=== PATIENT | female | born 1990 | race Caucasian/White ===

== ENCOUNTER → 2021-01-23 | Outpatient (REF) | payer MEDICAID ==
[2021-01-23 15:16] LABS: HEMATOCRIT 37.7 % (36.0-47.0); MEAN CORPUSCULAR HEMOGLOBIN 31.3 pg (27.0-33.0); MEAN CORPUSCULAR HGB CONC 34.5 g/dl (32.0-36.5); MEAN CORPUSCULAR VOLUME 90.8 fl (80.0-96.0); PLATELET COUNT, AUTOMATED 210 10^3/uL (150-450); RED BLOOD COUNT 4.15 10^6/uL (4.00-5.40); WHITE BLOOD COUNT 11.8 10^3/uL (4.0-10.0)
[2021-01-23 16:36] LABS: HEPATITIS C VIRUS ABY INDEX < 0.0 INDEX (<0.8); HIV 1&2 SCREEN CENTAUR NEGATIVE (NEGATIVE)
== END ==
LOC: M PLALAB 13:52
PROVIDERS: ATTEND Advanced Practice Midwife
DX: Z34.02 Encounter for supervision of normal first pregnancy, second trimester (principal); Z3A.00 Weeks of gestation of pregnancy not specified

== ENCOUNTER → 2021-03-31 | Outpatient (CLI) | payer MEDICAID ==
--- NOTE | 2021-03-31 10:43 | REP ---
INDICATION: ANATOMY NAVYA 07/22/21 COMPARISON: None. TECHNIQUE: Transabdominal obstetrical ultrasound with color Doppler evaluation. FINDINGS: Examination demonstrates a single live intrauterine in cephalic presentation. motion is identified by technologist. Placenta is noted anterior and grade 1 without evidence for placenta previa or abruption. Amniotic fluid volume is normal. Cervix measures 3.0 cm in length and appears closed.. Selected gestational age: 23 weeks 6 days with NAVYA 07/22/2021. Gestational age by current measurements 23 weeks 1 day with NAVYA 07/27/2021. FHR equals 134 beats per minute. Estimated weight 577 grams (18thpercentile). Anatomical assessment demonstrates normal structures including cranium, choroid plexus, cavum, cerebellum/posterior fossa, facial features, lungs, four-chamber heart/ventricular outflow tracts, diaphragm, stomach, cord insertion/three-vessel cord, kidneys/bladder, spine, and extremities. IMPRESSION: Single live intrauterine in cephalic presentation demonstrating appropriate estimated weight. Anatomical assessment is complete and normal. <Electronically signed by Misael Arteaga > 03/31/21 1511
== END ==
LOC: M WHC 08:57
PROVIDERS: ATTEND Advanced Practice Midwife
DX: Z34.02 Encounter for supervision of normal first pregnancy, second trimester (principal); Z3A.23 23 weeks gestation of pregnancy

== ENCOUNTER → 2021-04-30 | Outpatient (CLI) | payer MEDICAID, OTHER ==
[2021-04-30 16:08] LABS: HEMATOCRIT 37.2 % (36.0-47.0); HEMOGLOBIN 12.1 g/dl (12.0-15.5); MEAN CORPUSCULAR HEMOGLOBIN 30.7 pg (27.0-33.0); MEAN CORPUSCULAR HGB CONC 32.5 g/dl (32.0-36.5); MEAN CORPUSCULAR VOLUME 94.4 fl (80.0-96.0); PLATELET COUNT, AUTOMATED 169 10^3/uL (150-450); RED BLOOD COUNT 3.94 10^6/uL (4.00-5.40); WHITE BLOOD COUNT 12.4 10^3/uL (4.0-10.0)
[2021-04-30 18:10] LABS: GC DNA AMPLIFICATION NEGATIVE (NEGATIVE)
== END ==
LOC: M PLALAB 10:53
PROVIDERS: ATTEND Advanced Practice Midwife
DX: Z34.92 Encounter for supervision of normal pregnancy, unspecified, second trimester (principal); Z3A.24 24 weeks gestation of pregnancy

== ENCOUNTER 2021-05-10 20:28 | Emergency (ER) | payer MEDICAID, OTHER ==
[~2021-05-10] VITALS: Ht 167.6 cm; Wt 72.9 kg
[2021-05-11] MEDS ORDERED: VALA1TAB5 PO (00:44)
[2021-05-11] MEDS ORDERED: PRED20TA PO (00:44)
[2021-05-11] MEDS ORDERED: valACYclovir HCL 500 MG TAB PO ONE (00:45)
[2021-05-11] MEDS ORDERED: predniSONE 20 MG TAB PO ONE (00:45)
[2021-05-11 01:02] VITALS: BP 138/59
== END 2021-05-11 01:06 | disposition home or self-care (01) ==
LOC: M ED 20:28
DX: O99.353 Diseases of the nervous system complicating pregnancy, third trimester (principal); G51.0 Bell's palsy; Z79.899 Other long term (current) drug therapy; Z3A.29 29 weeks gestation of pregnancy
CPT/HCPCS: 99284; J7512

== ENCOUNTER → 2021-06-15 | Outpatient (CLI) | payer OTHER ==
[~2021-06-15] MED LIST: PRED20TA PO; VALA1TAB5 PO
--- NOTE | 2021-06-15 16:18 | REP ---
INDICATION: GROWTH. COMPARISON: 03/31/2021. TECHNIQUE: Real-time sonographic evaluation of the gravid uterus performed. FINDINGS: Estimated gestational age is34 weeks 5 days, EDC 07/22/2021. Today's measurements indicate appropriate growth. Presentation: Breech Placenta anterior, grade 2, without evidence of placenta previa. heart rate is recorded at 134 beats per minute. Amniotic fluid is subjectively normal. RAMILA 11.8, normal 8.0-24.9. Biometry chart: BPD: 86 mm, 34 weeks 5 days, 51st percentile. HC: 305 mm, 34 weeks 0 days, 39th percentile AC: 305 mm, 34 weeks 3 days, 46th percentile Femur length: 65 mm, 33 weeks 2 days, 29th percentile HC to AC ratio: 1.00, normal range 0.94-1.13. Estimated weight: 2354g, 29th percentile. SD ratio umbilical artery 2.48, normal 1.69-3.62. RI 0.60, normal 0.46-0.72. IMPRESSION: Viable single intrauterine gestation as above. <Electronically signed by Brad Perla > 06/15/21 7924
== END ==
LOC: M WHC 13:28
PROVIDERS: ATTEND Obstetrics & Gynecology
DX: O26.849 Uterine size-date discrepancy, unspecified trimester (principal)

== ENCOUNTER → 2021-06-23 | Outpatient (REF) | payer OTHER | LOC: M SFHCWAGY 13:04 | PROVIDERS: ATTEND Obstetrics & Gynecology | DX: Z34.03 Encounter for supervision of normal first pregnancy, third trimester (principal); Z3A.00 Weeks of gestation of pregnancy not specified ==

== ENCOUNTER 2021-07-20 20:03 | Inpatient (IN) | payer OTHER ==
[~2021-07-20] VITALS: Ht 170.2 cm; Wt 77.3 kg
[2021-07-20] MEDS ORDERED: PRENTAB9 PO (20:18)
[2021-07-20 20:23] VITALS: BP 117/68
[2021-07-20] MEDS ORDERED: HOME MED LIST COMPLETE! XX SCH (20:40)
--- OUTSIDE RECORDS SUMMARY | 2021-07-20 21:49 | CCD ---
Author Author [facility] [employer] Organization [facility] [employer] Address Unknown Phone Unavailable Care Team Providers Care Leather Goods Maker Name Role Phone Natalia Artis Unavailable PROBLEMS Type Condition ICD9-CM Code [id number] Code Onset Dates Condition S tatus W/U Status Risk SNOMED Code Notes Problem Supervision of other normal Z34.80 Ac tive confirm [id number] ALLERGIES No Known Allergies ENCOUNTERS from 1992 to 2021-07-01 Encounter Location Date Provider Diagnosis [facility] [address] [place] [address] [place] [address] May, Natalia Josyrupert Diseases of the nerv ous system complicating , third trimester O99.353 ; 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 ; Size of fetus inconsistent with dates in third trimester O26.843 ; 33 weeks gestation of Z3A.33 and Size of fetus inconsistent with dates, antepartum O26.849 IMMUNIZATIONS Vaccine Route Administration Date Status TDAP 0.5mL Boostrix IM Intramuscular Apr 30, 2021 Administere d SOCIAL HISTORY Tobacco Use: Social History Observation Description Date Details (start date - stop date) Never Smoker Sex Assigned At : Social History Observation Description Sex Assigned At Unknown Domestic Violence: Question Answer Notes Status: No history of abuse Alcohol Screening: Question Answer Notes Did you have a drink containing alcohol in the past year? No Points 0 Interpretation Negative Tobacco Use: Question Answer Notes Are you a: never smoker REASON FOR REFERRAL No Information VITAL SIGNS Weight 162 lbs May, Weight-kg 73.48 kg May, Height 64 in May, BMI 27.807 kg/m2 May, Blood pressure systolic 104 mm Hg May, Blood pressure diastolic 62 mm Hg May, MEDICATIONS Medication SIG (Take, Route, Frequency, Duration) Notes Start Da te End Date Status 28-0.8 MG 1 tablet Orally Once a day Active PROCEDURES No Information RESULTS Component Value Reference Range WWBC OBS FOLLOW UP OR REPEAT Reviewed date:06/15/2021 16:43:35 Interpretation: Performing Lab:[facility],[address] [place]], ,[place] [address] REASON FOR VISIT 2 WK PN MEDICAL (GENERAL) HISTORY Type Description Date Medical History bells palsy Goals Section No Information Health Concerns No Information MEDICAL EQUIPMENT No Information MENTAL STATUS No Information FUNCTIONAL STATUS No Information ASSESSMENTS Encounter Date Diagnosis Assessment Notes Treatment Notes Treatm ent Clinical Notes May, Diseases of the nervous syst em complicating , third trimester (ICD-10 - O99.353) May, 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) May, Size of fetus inconsistent w ith dates in third trimester (ICD-10 - O26.843) May, 33 weeks gestation of (ICD-10 - Z3A.33 ) May, Size of fetus inconsistent w ith dates, antepartum (ICD-10 - O26.849) PLAN OF TREATMENT Next Appt Details 2 Weeks Reason:Routine Provider Name:Anna Zavala, 2021-07-09 09:00:00 AM, [address] [place], [place] [address], [place], [address], Provider Name:Marietta Tijerina, 2021-07-15 10:40:00 AM, [address] [place], [place] [id number], [place], [address], Provider Name:Gucci Bird, 2021-07-21 1 0:00:00 AM, [address] [place], [place] [id number], [place], [address], [facility] Insurance Providers Payer Name Payer Address Payer Phone Insured Name Patient Relati onship to Insured Coverage Start Date Coverage End Date [facility] CORPORATE CLAIMS DEPT [address] [place] [phone] JANUARY HONG self
--- OUTSIDE RECORDS SUMMARY | 2021-07-20 21:49 | CCD ---
Author Author [facility] [facility] Organization [facility] Address Unknown Phone Unavailable Care Team Providers Care Floor Care Technician Name Role Phone Adela Nathan Unavailable PROBLEMS Type Condition ICD9-CM Code RKD61-[id number] Code Onset Dates Condition S tatus W/U Status Risk SNOMED Code Notes Problem Supervision of other normal Z34.80 Ac tive confirm [id number] ALLERGIES No Known Allergies ENCOUNTERS from 1992 to 2021-05-21 Encounter Location Date Provider Diagnosis [facility] [address] [place] [address] [place] [address] Apr, Nathan Chapman Diseases of the nerv ous system complicating , third trimester O99.353 ; 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 Yes with Men only Alcohol Screening: Question Answer Notes Did you have a drink containing alcohol in the past year? No Points 0 Interpretation Negative Tobacco Use: Question Answer Notes Are you a: never smoker REASON FOR REFERRAL No Information VITAL SIGNS Weight 157 lbs Apr, Height 64 in Apr, BMI 26.949 kg/m2 Apr, Blood pressure systolic 102 mm Hg Apr, Blood pressure diastolic 58 mm Hg Apr, MEDICATIONS Medication SIG (Take, Route, Frequency, Duration) Notes Start Da te End Date Status 28-0.8 MG 1 tablet Orally Once a day Active PROCEDURES No Information RESULTS No Results REASON FOR VISIT 2WK PN MEDICAL (GENERAL) HISTORY Type Description Date Medical History bells palsy Goals Section No Information Health Concerns No Information MEDICAL EQUIPMENT No Information MENTAL STATUS No Information FUNCTIONAL STATUS No Information ASSESSMENTS Encounter Date Diagnosis Assessment Notes Treatment Notes Treatm ent Clinical Notes Apr, Diseases of the nervous syst em complicating , third trimester (ICD-10 - O99.353) Apr, 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
--- OUTSIDE RECORDS SUMMARY | 2021-07-20 21:49 | CCD ---
Author Author [employer] Organization [employer] Address Unknown Phone Unavailable Care Team Providers Care Gum Machine Operator Name Role Phone Marietta Tijerina Unavailable PROBLEMS Type Condition ICD9-CM Code ENA04-UE Code Onset Dates Condition S tatus W/U Status Risk SNOMED Code Notes Problem Supervision of other normal Z34.80 Ac tive confirm [id number] ALLERGIES No Known Allergies ENCOUNTERS from 1992 to 2021-05-01 Encounter Location Date Provider Diagnosis [facility] [address] [place] [address] [place] [address] Apr, Marietta Martyprincess 28 weeks gestatio n of Z3A.28 ; Encounter for supervision of normal first in third trimester Z34.03 and Encounter for immunization Z23 IMMUNIZATIONS Vaccine Route Administration Date Status TDAP [...] FOR REFERRAL No Information VITAL SIGNS Weight 158.4 lbs Apr, Weight-kg 71.85 kg Apr, Height 64 in Apr, BMI 27.189 kg/m2 Apr, Blood pressure systolic 110 mm Hg Apr, Blood pressure diastolic 68 mm Hg Apr, MEDICATIONS Medication SIG (Take, Route, Frequency, Duration) Notes Start Da te End Date Status 28-0.8 MG 1 tablet Orally Once a day Active PROCEDURES from 1992 to 2021-05-01 Procedure Date Ordered Result Body Site Imm: Boostrix 0.5mL IM TDAP 2021-04-30 N/A RESULTS No Results REASON FOR VISIT 4WK PN Goals Section No Information Health Concerns No Information MEDICAL EQUIPMENT No Information MENTAL STATUS No Information FUNCTIONAL STATUS No Information ASSESSMENTS Encounter Date Diagnosis Assessment Notes Treatment Notes Treatm ent Clinical Notes Apr, 28 weeks gestation of (ICD-10 - Z3A.28 ) Apr, Encounter for supervision of normal first in third trimester (ICD-10 - Z34.03) Apr, Encounter for immunization (ICD-10 - Z23) PLAN OF TREATMENT Next Appt Details 2 Weeks Reason:- Routine follow up Provider Name:Nathan Chapman, 11:00:00 AM, [address] [facility], , [place], [address], Follow Up:2 Weeks- Routine follow up Insurance Providers Payer Name Payer Address Payer Phone Insured Name Patient Relati onship to Insured Coverage Start Date Coverage End Date [facility] [employer] [facility] [facility] [address] [facility] [phone] JANUARY HONG self
--- OUTSIDE RECORDS SUMMARY | 2021-07-20 21:49 | CCD ---
Author Author [employer] Organization [employer] Address Unknown Phone Unavailable Care Team Providers Care Swage Toolsetter Name Role Phone Natalia Artis Unavailable PROBLEMS Type Condition ICD9-CM Code CAK33-JV Code Onset Dates Condition S tatus W/U Status Risk SNOMED Code Notes Problem Supervision of other normal Z34.80 Ac tive confirm [id number] ALLERGIES No Known Allergies ENCOUNTERS from 1992 to 2021-07-03 Encounter Location Date Provider Diagnosis [facility] [address] [place] [address] [place] [address] Jun, Natalia Josyrupert Encounter for superv ision of normal first in third trimester Z34.03 and 37 weeks gestation of Z3A.37 IMMUNIZATIONS Vaccine Route Administration Date Status TDAP [...] FOR REFERRAL No Information VITAL SIGNS Weight 165.0 lbs Jun, Weight-kg 74.84 kg Jun, Height 64 in Jun, BMI 28.322 kg/m2 Jun, Blood pressure systolic 102 mm Hg Jun, Blood pressure diastolic 62 mm Hg Jun, MEDICATIONS Medication SIG (Take, Route, Frequency, Duration) Notes Start Da te End Date Status 28-0.8 MG 1 tablet Orally Once a day Active PROCEDURES No Information RESULTS No Results REASON FOR VISIT 1WK PN MEDICAL (GENERAL) HISTORY Type Description Date Medical History bells palsy Goals Section No Information Health Concerns No Information MEDICAL EQUIPMENT No Information MENTAL STATUS No Information FUNCTIONAL STATUS No Information ASSESSMENTS Encounter Date Diagnosis Assessment Notes Treatment Notes Treatm ent Clinical Notes Jun, 37 weeks gestation of (ICD-10 - Z3A.37 ) Jun, Encounter for supervision of normal first in third trimester (ICD-10 - Z34.03) PLAN OF TREATMENT Next Appt Details 1 Week Reason: Provider Name:Anna Zavala, 2021-07-09 09:00:00 AM, [address] [place], [place] [id number], [place], [address], Provider Name:Marietta Tijerina, 2021-07-15 10:40:00 AM, [address] [place] [address], [place], [address], Provider Name:Gucci Bird, 2021-07-21 1 0:00:00 AM, [address] [place], [place] [id number], [place], [address], Follow Up:1 WeekPrenatal Insurance Providers Payer Name Payer Address Payer Phone Insured Name Patient Relati onship to Insured Coverage Start Date Coverage End Date [facility] CORPORATE CLAIMS DEPT [address] [place] [phone] GELY,JANUARY self
--- OUTSIDE RECORDS SUMMARY | 2021-07-20 21:49 | CCD ---
Author Author [employer] Organization [employer] Address Unknown Phone Unavailable Care Team Providers Care Cabinetmaker Helper Name Role Phone Natalia Artis Unavailable PROBLEMS Type Condition ICD9-CM Code QWV75-YT Code Onset Dates Condition S tatus W/U Status Risk SNOMED Code Notes Problem Supervision of other normal Z34.80 Ac tive confirm [id number] ALLERGIES No Known Allergies ENCOUNTERS from 1992 to 2021-07-03 Encounter Location Date Provider Diagnosis [facility] [address] [place] [address] [place] [address] May, Ntaalia Josyrupert Encounter for superv ision of normal first in third trimester Z34.03 and 35 weeks gestation of Z3A.35 IMMUNIZATIONS Vaccine Route Administration Date Status TDAP [...] FOR REFERRAL No Information VITAL SIGNS Weight 162.8 lbs May, Weight-kg 73.84 kg May, Height 64 in May, BMI 27.945 kg/m2 May, Blood pressure systolic 110 mm Hg May, Blood pressure diastolic 64 mm Hg May, MEDICATIONS Medication SIG (Take, Route, Frequency, Duration) Notes Start Da te End Date Status 28-0.8 MG 1 tablet Orally Once a day Active PROCEDURES No Information RESULTS Component Value Reference Range GROUP B STREP CULTURE Reviewed date:06/25/2021 12:02:47 Interpretation: Performing Lab:[facility], [facility] [address] [facility] [id number] , ,[place] [id number] REASON FOR VISIT 2 wk pn MEDICAL (GENERAL) HISTORY Type Description Date Medical History bells palsy Goals Section No Information Health Concerns No Information MEDICAL EQUIPMENT No Information MENTAL STATUS No Information FUNCTIONAL STATUS No Information ASSESSMENTS Encounter Date Diagnosis Assessment Notes Treatment Notes Treatm ent Clinical Notes May, 35 weeks gestation of (ICD-10 - Z3A.35 ) May, Encounter for supervision of normal first in third trimester (ICD-10 - Z34.03) PLAN OF TREATMENT Next Appt Details 1 Week Reason: Provider Name:Anna Zavala, 2021-07-09 09:00:00 AM, [address] [place] [address], [place], [address], Provider Name:Marietta Tijerina, 2021-07-15 10:40:00 AM, [address] [place], [place] [id number], [place], [address], Provider Name:Gucci Bird, 2021-07-21 1 0:00:00 AM, [address] [place], [place] [id number], [place], [address], Follow Up:1 WeekPrenatal Insurance Providers Payer Name Payer Address Payer Phone Insured Name Patient Relati onship to Insured Coverage Start Date Coverage End Date [facility] CORPORATE CLAIMS DEPT [address] [place] [phone] JANUARY HONG self
--- OUTSIDE RECORDS SUMMARY | 2021-07-20 21:49 | CCD ---
Author Author [facility] Organization [facility] Address Unknown Phone Unavailable Support Name Relationship Address Phone REYNA RICO Next Of Kin [address] [place] [address] MASOOD HONG Next Of Kin [address] [place] [address] JULIO C CLARK Next Of Kin [address] [place] [address] MICHAEL PADGETT Next Of Kin [address] [place] [address] MICHAEL PADGETT ECON [address] [place] [address] Unavailable Re-disclosure Warning The records that you are about to access may contain information from federally-assisted alcohol or drug abuse programs. If such information is present, then the following federally mandated warning applies: This information has been disclosed to you from records protected by federal confidentiality rules (42 CFR part 2). The federal rules prohibit you from making any further disclosure of this information unless further disclosure is expressly permitted by the written consent of the person to whom it pertains or as otherwise permitted by 42 CFR part 2. A general authorization for the release of medical or other information is NOT sufficient for this purpose. The Federal rules restrict any use of the information to criminally investigate or prosecute any alcohol or drug abuse patient.The records that you are about to access may contain highly sensitive health information, the redisclosure of which is protected by Article 27-F of the [facility] Public Health law. If you continue you may have access to information: Regarding HIV / AIDS; Provided by facilities licensed or operated by the [facility] Office of Mental Health; or Provided by the [facility] Office for People With Developmental Disabilities. If such information is present, then the following [facility] mandated warning applies: This information has been disclosed to you from confidential records which are protected by state law. State law prohibits you from making any further disclosure of this information without the specific written consent of the person to whom it pertains, or as otherwise permitted by law. Any unauthorized further disclosure in violation of state law may result in a fine or [place] [facility] sentence or both. A general authorization for the release of medical or other information is NOT sufficient authorization for further disc losure. Encounters Encounter Providers Location Date Indications Data Source(s ) ( ESTOB) [facility] OB [address] [place] [address] 07/01/2021 12:00:00 AM EDT eCW1 ([facility]) ( ESTOB) [facility] OB [address] [place] [address] 06/23/2021 12:00:00 AM EDT eCW1 ([facility]) ( ESTOB) [facility] OB [address] [place] [address] 06/03/2021 12:00:00 AM EDT eCW1 ([facility]) ( ESTOB) [facility] OB [address] [place] [address] 05/20/2021 12:00:00 AM EDT eCW1 ([facility]) ( ESTOB) [facility] OB [address] [place] [address] 04/30/2021 12:00:00 AM EDT eCW1 ([facility]) ( ESTOB) [facility] OB [address] [place] [address] 04/02/2021 12:00:00 AM EDT eCW1 ([facility]) ( ESTOB) [facility] OB [address] [place] [address] 02/19/2021 12:00:00 AM EDT eCW1 ([facility]) ( NEWOB) [facility] New OB Visit [address] [place] [address] 01/23/2021 12:00:00 AM EDT eCW1 ([facility]) Immunizations Vaccine Date Status Description Data Source(s) COVID-19 VACCINE Moderna 07/06/2021 12:00:00 AM EDT completed [place] Vaccine Series Complete: YESThis Data wa s Submitted to [facility] Via [employer]. COVID-19 VACCINE Moderna 06/08/2021 12:00:00 AM EDT completed [facility] Vaccine Series Complete: NOThis Data was Submitted to [facility] Via [employer]. Tdap 04/30/2021 11:41:00 AM EDT completed e CW1 ([facility]) Tdap 04/30/2021 11:41:00 AM EDT completed e CW1 ([facility]) Tdap 04/30/2021 11:41:00 AM EDT completed e CW1 ([facility]) Tdap 04/30/2021 11:41:00 AM EDT completed e CW1 ([facility]) Tdap 04/30/2021 11:41:00 AM EDT completed e CW1 ([facility]) Medications No Information Insurance Providers Payer name Policy type / Coverage type Policy ID Covered libertarian ID Covered libertarian's relationship to edward Policy Edward Plan Information [facility] [id number] [facility] MEDICAID [id number] SP [id number] M Problems, Conditions, and Diagnoses Code Display Name Description Problem Type Effective Dates Data Source(s) Z34.80 care Supervision of other normal Gigi crews 01/20/2021 12:00:00 AM EDT eCW1 ([facility]) Surgeries/Procedures Procedure Description Date Indications Data Source(s) TDAP VACCINE 7/> YR IM 04/30/2021 12:00:00 AM EDT eCW1 ([facility]) Results ID Date Data Source GROUP B STREP CULTURE 06/23/2021 12:00:00 AM EDT eCW1 ([facility]) Name Value Range Interpretation Code Description Data Elise rce(s) Supporting Document(s) GROUP B STREP CULTURE eCW1 ([facility]) ID Date Data Source WWBC OBS FOLLOW UP OR REPEAT 06/15/2021 12:00:00 AM EDT eCW1 ([facility]) Name Value Range Interpretation Code Description Data Elise rce(s) Supporting Document(s) WWBC OBS FOLLOW UP OR REPEAT e CW1 ([facility]) ID Date Data Source HBSAG 01/23/2021 12:00:00 AM EDT eCW1 ([facility]) Name Value Range Interpretation Code Description Data Elise rce(s) Supporting Document(s) NEGATIVE NEGATIVE HBsAg eCW1 ([facility]) ID Date Data Source URINE CULTURE 01/23/2021 12:00:00 AM EDT eCW1 ([facility]) Name Value Range Interpretation Code Description Data Elise rce(s) Supporting Document(s) URINE CULTURE eCW1 ([facility]) ID Date Data Source RUBELLA IMMUNE STATUS IgG 01/23/2021 12:00:00 AM EDT eCW1 ([facility]) Name Value Range Interpretation Code Description Data Elise rce(s) Supporting Document(s) IMMUNE IMMUNE RUBELLA IgG QUALITATIVE eCW1 ( [facility]) ID Date Data Source SYPHILIS ANTIBODY (RPR SCREEN) 01/23/2021 12:00:00 AM EDT eC W1 ([facility]) Name Value Range Interpretation Code Description Data Elise rce(s) Supporting Document(s) NONREACTIVE NONREACTIVE SYPHILIS eCW1 ([facility]) ID Date Data Source [id number] 01/23/2021 12:00:00 AM EDT eCW1 ([facility]) Name Value Range Interpretation Code Description Data Elise rce(s) Supporting Document(s) HIV 1&2 ANTIBODY SCREEN eCW1 ( [facility]) ID Date Data Source HEPATITIS C ANTIBODY INDEX 01/23/2021 12:00:00 AM EDT eCW1 ( [facility]) Name Value Range Interpretation Code Description Data Elise rce(s) Supporting Document(s) < 0.0 <0.8 HEPATITIS C VIRUS ELZBIETA IND EX eCW1 ([facility]) ID Date Data Source CBC - Complete Blood Count 01/23/2021 12:00:00 AM EDT eCW1 ( [facility]) Name Value Range Interpretation Code Description Data Elise rce(s) Supporting Document(s) 11.8 4.0-10.0 WHITE BLOOD COUNT eCW1 ([facility]) 90.8 80.0-96.0 MEAN CORPUSCULAR VOLUME e CW1 ([facility]) 37.7 36.0-47.0 HEMATOCRIT eCW1 ([facility]) 4.15 4.00-5.40 RED BLOOD COUNT eCW1 ([facility]) 13.0 12.0-15.5 HEMOGLOBIN eCW1 ([facility]) 31.3 27.0-33.0 MEAN CORPUSCULAR HEMOGLOB IN eCW1 ([facility]) 12.6 11.5-14.5 RED CELL DISTRIBUTION WID TH eCW1 ([facility]) 34.5 32.0-36.5 MEAN CORPUSCULAR HGB CONC eCW1 ([facility]) 210 150-450 PLATELET COUNT, AUTOMATED eCW1 ([facility]) ID Date Data Source Type and Screen Prenatal1 01/23/2021 12:00:00 AM EDT eCW1 ([facility]) Name Value Range Interpretation Code Description Data Elise rce(s) Supporting Document(s) NEGATIVE AB SCREEN PNP1 GEL (VIS) eCW1 ([facility]) Procedure Social History Code Duration Value Status Description Data Source(s ) Smoking 07/01/2021 12:00:00 AM EDT Never Smoker completed Never S moker eCW1 ([facility]) Smoking 07/01/2021 12:00:00 AM EDT Never Smoker completed Never S moker eCW1 ([facility]) Smoking 07/01/2021 12:00:00 AM EDT Never Smoker completed Never S moker eCW1 ([facility]) Smoking 05/20/2021 12:00:00 AM EDT Never Smoker completed Never S moker eCW1 ([facility]) Smoking 04/29/2021 12:00:00 AM EDT Never Smoker completed Never S moker eCW1 ([facility]) Smoking 03/25/2021 12:00:00 AM EDT Never Smoker completed Never S moker eCW1 ([facility]) Smoking 02/19/2021 12:00:00 AM EDT Never Smoker completed Never S moker eCW1 ([facility]) Smoking 01/23/2021 12:00:00 AM EDT Never Smoker completed Never S moker eCW1 ([facility]) Vital Signs ID Date Data Source UNK Name Value Range Interpretation Code Description Data Source(s) Body weight 165.0 [lb_av] 165.0 [lb_av] eCW1 ([facility]) Body weight 74.84 kg 74.84 kg eCW1 ([facility]) Body height 64 [in_i] 64 [in_i] eCW1 ([facility]) Body mass index (BMI) [Ratio] 28.322 kg/m2 28.3 22 kg/m2 eCW1 ([facility]) Systolic blood pressure 102 mm[Hg] 102 mm[Hg] e CW1 ([facility]) Diastolic blood pressure 62 mm[Hg] 62 mm[Hg] eCW1 ([facility]) Body weight 162.8 [lb_av] 162.8 [lb_av] eCW1 ([facility]) Body weight 73.84 kg 73.84 kg eCW1 ([facility]) Body height 64 [in_i] 64 [in_i] eCW1 ([facility]) Body mass index (BMI) [Ratio] 27.945 kg/m2 27.9 45 kg/m2 eCW1 ([facility]) Systolic blood pressure 110 mm[Hg] 110 mm[Hg] e CW1 ([facility]) Diastolic blood pressure 64 mm[Hg] 64 mm[Hg] eCW1 ([facility]) Body height 64 [in_i] 64 [in_i] eCW1 ([facility]) Body weight 162 [lb_av] 162 [lb_av] eCW1 ([facility]) Body weight 73.48 kg 73.48 kg eCW1 ([facility]) Body mass index (BMI) [Ratio] 27.807 kg/m2 27.8 07 kg/m2 eCW1 ([facility]) Systolic blood pressure 104 mm[Hg] 104 mm[Hg] e CW1 ([facility]) Diastolic blood pressure 62 mm[Hg] 62 mm[Hg] eCW1 ([facility]) Body weight 157 [lb_av] 157 [lb_av] eCW1 ([facility]) Body height 64 [in_i] 64 [in_i] eCW1 ([facility]) Body mass index (BMI) [Ratio] 26.949 kg/m2 26.9 49 kg/m2 eCW1 ([facility]) Systolic blood pressure 102 mm[Hg] 102 mm[Hg] e CW1 ([facility]) Diastolic blood pressure 58 mm[Hg] 58 mm[Hg] eCW1 ([facility]) Body weight 158.4 [lb_av] 158.4 [lb_av] eCW1 ([facility]) Body weight 71.85 kg 71.85 kg eCW1 ([facility]) Body height 64 [in_i] 64 [in_i] eCW1 ([facility]) Body mass index (BMI) [Ratio] 27.189 kg/m2 27.1 89 kg/m2 eCW1 ([facility]) Systolic blood pressure 110 mm[Hg] 110 mm[Hg] e CW1 ([facility]) Diastolic blood pressure 68 mm[Hg] 68 mm[Hg] eCW1 ([facility]) Body weight 152 [lb_av] 152 [lb_av] eCW1 ([facility]) Body weight 68.95 kg 68.95 kg eCW1 ([facility]) Body height 64 [in_i] 64 [in_i] eCW1 ([facility]) Body mass index (BMI) [Ratio] 26.091 kg/m2 26.0 91 kg/m2 eCW1 ([facility]) Systolic blood pressure 108 mm[Hg] 108 mm[Hg] e CW1 ([facility]) Diastolic blood pressure 70 mm[Hg] 70 mm[Hg] eCW1 ([facility]) Body weight 145.6 [lb_av] 145.6 [lb_av] eCW1 ([facility]) Body height 64 [in_i] 64 [in_i] eCW1 ([facility]) Body mass index (BMI) [Ratio] 24.99 kg/m2 24.99 kg/m2 W1 ([facility]) Systolic blood pressure 110 mm[Hg] 110 mm[Hg] e CW1 ([facility]) Diastolic blood pressure 60 mm[Hg] 60 mm[Hg] eCW1 ([facility]) Body weight 140.4 [lb_av] 140.4 [lb_av] eCW1 ([facility]) Body weight 63.68 kg 63.68 kg W1 ([facility]) Body height 64 [in_i] 64 [in_i] eCW1 ([facility]) Body mass index (BMI) [Ratio] 24.1 kg/m2 24.1 k g/m2 W1 ([facility]) Systolic blood pressure 110 mm[Hg] 110 mm[Hg] e CW1 ([facility]) Diastolic blood pressure 70 mm[Hg] 70 mm[Hg] eCW1 ([facility])
[2021-07-20] MEDS ORDERED: METHYLERGONOVINE MALEATE 0.2 MG/ML VIAL (J2210) IM PRN (21:50)
[2021-07-20] MEDS ORDERED: LIDOCAINE 1% MDV 20ML VIAL INFIL PRN (21:50)
[2021-07-20] MEDS ORDERED: CARBOPROST TROMETHAMINE 250 MCG/ML AMP IM PRN (21:50)
[2021-07-20] MEDS ORDERED: LR 1,000 ML IV SCH (21:50)
[2021-07-20] MEDS ORDERED: OXYTOCIN DRIP 30 UNITS in IV 1 EA IV PRN (21:50)
[2021-07-20] MEDS ORDERED: TRANEXAMIC ACID INJection 1,000 MG in NS 100 ML IV PRN (21:50)
[2021-07-20] MEDS ORDERED: LACTATED RINGER'S 1000 ML IV STA (21:50)
[2021-07-20] MEDS ORDERED: OXYTOCIN DRIP 30 UNITS in IV 1 EA IV SCH (21:50)
[2021-07-20 22:39] LABS: HEMATOCRIT 32.9 % (36.0-47.0); HEMOGLOBIN 10.9 g/dl (12.0-15.5); MEAN CORPUSCULAR HEMOGLOBIN 29.5 pg (27.0-33.0); MEAN CORPUSCULAR HGB CONC 33.1 g/dl (32.0-36.5); MEAN CORPUSCULAR VOLUME 88.9 fl (80.0-96.0); PLATELET COUNT, AUTOMATED 151 10^3/uL (150-450); WHITE BLOOD COUNT 9.7 10^3/uL (4.0-10.0)
[2021-07-20 22:50] LABS: INR 0.84; PROTHROMBIN TIME 11.9 SECONDS (12.7-14.5)
[2021-07-20 22:51] LABS: PARTIAL THROMBOPLASTIN TIME 26.5 SECONDS (25.9-37.0)
[2021-07-20 23:00] VITALS: BP 116/76
[2021-07-20 23:52] VITALS: BP 123/73
[2021-07-21] VITALS (37 sets, daily range): BP systolic 91–124; BP diastolic 50–82
--- NOTE | 2021-07-21 00:04 | HPEPDOC ---
Obstetrical History & Physical General Date of Admission Jul 20, 2021 at 21:47 Primary Care Physician: MARTHA MAHMOOD CNM History of Present Illness Kartik is a 31 y.o. at 39 5/7 weeks confirmed via first trimester ultrasound who presents to the labor and delivery unit with new onset of vaginal bleeding. She established care at [facility] and her has been complicated by Osborne's Palsy at 29 weeks. She reports good movement, no loss of fluid or uterine contractions. Chief Complaint: Vaginal Bleeding Information Provided By: Patient Age: 31 : 1 Term: 0 Pre-term: 0 Abortions: 0 Livin Care Care: Good Care Dating Final EDC: Jul 22, 2021 Final EDC by: 1st trimester (US) LMP: Oct 15, 2020 Weeks + Days: 39.5 EGA at Admission: 39.5 Antepartum Course Height (inches): 67 Pre- weight (lbs.): 140.4 Admission Weight (lbs.): 167.6 Past Medical History [employer] BU[employer] History: No pertinent history Past Medical History Medical History Hx of Osborne's Palsy that resolved. Surgical History: Denies/None Family History Significant Family History: Hypertension, Renal disease Social History Marital Status: Family situation: Spouse/partner home Psychosocial History: No pertinent psych hx * Smoker: non-smoker Alcohol: Denies Drugs: denies Abuse Violence Screening Have you been hit/kicked/slapp: No Have you been sexually assault: No Imunizations Tdap status: current Allergies Coded Allergies: No Known Allergies (Unverified , 05/10/21) Medications Scheduled No.137/Iron/Folic Acd ( Vitamin Tablet) 1 Each Tablet, 1 TAB PO DAILY Physical Examination Physical Examination GENERAL: Alert and oriented times three. ABDOMEN: Gravid and non-tender to touch. FETUS: Is vertex (VTX) by sterile vaginal examination (SVE), fetus is vertex (VTX) by Carter. SSE reveals moderate amount of dark red blood in vagina. LUNGS: breathing comfortably on room air, no use of accessory muscles. EXTREMITIES: generalized edema, no pitting Vital Signs/I&O Vital Signs Date Time Temp Pulse Resp B/P (MAP) Pulse Ox O2 Delivery O2 Flow Rate FiO2 07/20/21 20:23 97.6 75 16 117/68 (84) Laboratory Data 24H LABS Laboratory Tests 2 07/20/21 21:49: Serology Scanned Report Hepatitis B Testing 07/20/21 21:57: Urine Culture: No Growth Pertinent Laboratoy Data Blood Type: B+ RBC Antibody Screen: Negative HIV: Negative Hepatitis B: Negative Hepatitis C: Negative Rapid Plasma Reagin: Nonreactive Rubella: Immune Varicella: Immune Chlamydia/Gonorrhea: Negative Group B Streptococcus: Negative Quad Screen Test: Negative Cystic Fibrosis: Negative Glucose Tolerance Test: 100 Anatomy Ultrasound Ultrasound Date: Jun 15, 2021 Placenta Location: Anterior Normal Anatomy: Yes Placenta Previa: No Estimated Weight (grams): 2354 Vaginal Examination Dilation: 4 cm Effacement: 100% Station: -1 Cervical Consistency: Soft Cervical Position: Anterior Presentation: Cephalic presentation Assessment Heart Rate (FHR): 145 Variability: Moderate Accelerations: Positive Decelerations: None Tocometer Contractions: Yes Frequency: every 2-5 min. Multi-drug resistant Organism: No history of MDRO Assessment/Plan Assessment IUP at 39 5/7, clinical placental abruption, diagnosis of + COVID-19 upon admission, active labor, GBS neg Plan Admit to labor and delivery. patient to be transferred into negative pressure room. She is asymptomatic. Diet: clear liquids. Group B Streptococcus (GBS) negative. Labs and intravenous (IV) per unit protocol. Counseled on placental abruption and plan of care. Discussed Pitocin and augmentation of labor (IOL) due to placental abruption. Anesthesia consult per patient request Lactated Ringers (LR): Bolus 800 mL, then at 125 mL/hr if epidural desired Anticipate normal spontaneous delivery (). C-S as appropriate. MARTHA MAHMOOD CNM Jul 21, 2021 00:04
[2021-07-21] MEDS ORDERED: FENTANYL 2MCG/ML ROPIVACAINE 0.2% IN 0.9% NACL 100ML IVBAG As Ordered ONE (01:37)
[2021-07-21] MEDS ORDERED: diphenhydrAMINE 50MG/ML VIAL (J1200) IV PRN (02:00)
[2021-07-21] MEDS ORDERED: REFRIGERATOR IV KEYS XX PRN (02:00)
[2021-07-21] MEDS ORDERED: NALOXONE INJ 0.4MG/1ML VIAL (J2310 PER 1MG) IV PRN (02:00)
[2021-07-21] MEDS ORDERED: EPIDURAL/PCA KEYS XX PRN (02:00)
[2021-07-21] MEDS ORDERED: FENTANYL/ROPIVACAINE/NACL BAG 100 ML EPIDURAL SCH (02:00)
[2021-07-21] MEDS ORDERED: EPIDURAL COMMENT XX SCH (02:00)
[2021-07-21] MEDS ORDERED: LACTATED RINGER'S 1000 ML IV PRN (02:00)
[2021-07-21] MEDS ORDERED: ePHEDrine SULFATE 25 MG/5 ML(5MG/ML) SYRINGE IV PRN (02:00)
[2021-07-21] MEDS ORDERED: ONDANSETRON 4MG/2ML VIAL IV PRN (02:00)
[2021-07-21] MEDS ORDERED: OXYTOCIN 30 UNITS IN 0.9% NaCl 500ML IV BAG (J2590) As Ordered ONE (03:13)
--- NOTE | 2021-07-21 05:33 | IPNPDOC ---
Obstetrical Progress Note Date of Service Jul 21, 2021 Subjective Patient reports feeling pressure but is comfortable with her epidural. Objective Vital Signs Date Time Temp Pulse Resp B/P (MAP) Pulse Ox O2 Delivery O2 Flow Rate FiO2 07/21/21 04:37 80 16 95/59 (71) 07/21/21 03:16 97.8 Assessment Heart Rate (FHR): 135 Variability: Moderate Accelerations: Positive Decelerations: None Heart Rate Tracing: Category I Tocometer Contractions: Yes Frequency: regular Sterile Vaginal Examination Dilation: complete Effacement (%): 100% Station: +1 Postion/Presentation: Cephalic presentation Assessment and Plan Age: 31 : 1 Term: 0 Pre-term: 0 Abortions: 0 Livin EGA at Admission: 39.5 Weeks & Days 39.6 Status: Reassuring Group B Streptococcus: Negative Anticipate: Vaginal Delivery Additional Comments AROM to a small amount of clear fluid. IV Pitocin is at 4 mu/min. MARTHA MAHMOOD CNM Jul 21, 2021 05:33
[2021-07-21] MEDS ORDERED: MEASLES,MUMPS,RUBELLA VACCINE INJ (MMR-II) (90707) SC SCH (08:25)
[2021-07-21] MEDS ORDERED: IBUPROFEN 600MG TAB PO PRN (08:25)
[2021-07-21] MEDS ORDERED: MOM 30ML SUSPENSION UDC PO PRN (08:25)
[2021-07-21] MEDS ORDERED: METHYLERGONOVINE MALEATE 0.2 MG TAB PO PRN (08:25)
[2021-07-21] MEDS ORDERED: ACETAMINOPHEN TAB 650MG DOSE (2X325MG) PO PRN (08:25)
[2021-07-21] MEDS ORDERED: DIBUCAINE 1% OINTMENT 30GM TOP PRN (08:25)
[2021-07-21] MEDS ORDERED: RHOGAM 300 MCG (1500 IU) INJ (J2790) IM SCH (08:25)
[2021-07-21] MEDS ORDERED: DOCUSATE SODIUM 100MG CAPSULE PO PRN (08:25)
[2021-07-21] MEDS ORDERED: ANUSOL HC CREAM 30GM TOP PRN (08:25)
--- NOTE | 2021-07-21 08:48 | DNPDOC ---
[facility] Delivery Note Delivery Note DATE OF DELIVERY: 07/21/21 at 0619 PREDELIVERY DIAGNOSIS: 39-6/7 weeks' gestation, active labor, Covid-19 positive. POST DELIVERY DIAGNOSIS: Delivered. PROCEDURE: Spontaneous vaginal delivery. DIRECTOR OF PHYSICIAN PRACTICES: Martha Zavala CNM, NINFA and SAHRA Wilkes ANESTHESIA: epidural. ESTIMATED BLOOD LOSS: 450 mL. FINDINGS: 7 pounds 2 ounce; 3230 grams; male , Score 9/9, subclinical placental abruption, Covid 19 positive. DELIVERY SUMMARY: Kartik is a 31-year-old female who is now a that presented to labor and delivery with complaints of vaginal bleeding. She was found to be in active labor and diagnosed with a subclinical abruption and also found to test positive for Covid-19. She has been vaccinated and without any symptoms. Her labor was augmented with a small amount of IV Pitocin. She requested an epidural for pain management. The patient progressed to fully dilated at 0506 and labored down until 0554. she pushed to a living male in the IVY position with restitution to LOT. A nuchal cord was noted and not reduced. The anterior shoulder delivered with gentle downward traction and the corpus immediately followed via [place]. The baby was placed [id number] active and crying. The cord was clamped x2 after pulsation ceased and cut by the FOB. A 3- vessel cord was noted. The placenta delivered with trailing membranes, which were manually removed. Uterine hemostasis was achieved via rapid infusion of IV Pitocin, fundal massage and IM Methergine. The vagina, cervix, and perineum was inspected and found to have a second degree perineal laceration that was repa ired wit0 Vicryl Rapid CT-1. Mom plans to breastfeed. Both mom and baby are in stable condition. All counts of sponges and instruments are in stable condition. MARTHA ZAVALA CNM Jul 21, 2021 08:48
[2021-07-21] MEDS ORDERED: AMPICILLIN SOD/SULBACTAM SOD 3 GM in D5W MINI-BAG PLUS 100 ML IV ONE (09:00)
[2021-07-21] MEDS: PRENATAL VITAMINS CHEWABLE TABLET PO SCH (09:27)
[2021-07-21] MEDS: IBUPROFEN 800 MG TAB PO PRN (16:14)
[2021-07-22] MEDS: IBUPROFEN 800 MG TAB PO PRN ×2 (04:30→17:38)
[2021-07-22 06:23] VITALS: BP 104/62
[2021-07-22] MEDS: ACETAMINOPHEN 500 MG TAB PO PRN (11:20)
[2021-07-22] MEDS: PRENATAL VITAMINS CHEWABLE TABLET PO SCH (11:20)
[2021-07-22] MEDS ORDERED: METHYLERGONOVINE MALEATE 0.2 MG/ML VIAL (J2210) ONE (15:32)
[2021-07-23 06:05] VITALS: BP 102/67
[2021-07-23] MEDS ORDERED: INFLUENZA QUADRIVALENT PF VACCINE 0.5ML SYRINGE IM ONE (09:00)
[2021-07-23] MEDS: PRENATAL VITAMINS CHEWABLE TABLET PO SCH (09:35)
[2021-07-23] MEDS: ACETAMINOPHEN 500 MG TAB PO PRN ×2 (09:35→20:21)
--- NOTE | 2021-07-23 11:45 | IPNPDOC ---
Progress Note Date of Service: Jul 23, 2021 Day#: 2 Progress Note SUBJECT: Patient is a 31-year-old G 1 P 1 status post uncomplicated spontaneous vaginal delivery at 39-5/7 weeks' doing well day #2. She has been ambulating, voiding spontaneously without issue and tolerating regular diet. Breast feeding without issue. Reports lochia is like a normal period. Patient is ambulating well. Reports some cramping, well controlled with medication. Voiding and ambulating without difficulty. OBJECTIVE: VITAL SIGNS: Within normal limits, afebrile. Alert and oriented times three. Breath sounds clear to auscultation. Heart rate: Regular rate and rhythm, no murmurs, rubs or gallops. Abdomen: Fundus firm at U-2. Soft, NTTP. Minimal to moderate lochia. ASSESSMENT: Patient is a 31-year-old G 1 P 1 status post uncomplicated spontaneous vaginal delivery. Doing well on day 2. Vitals within norm al limits, afebrile, hemodynamically stable with no evidence of infection. She is Covid positive PLAN: 1. Discharge to home tomorrow. 2. Tylenol and Motrin for pain. 3. Encourage breast feeding and ambulation. 4. Patient is Covid positive, on precautions 5. Routine PP visit in 6 weeks in clinic. 6. Discussed return precautions at length. VS, I&O, 24H, Fishbone Vital Signs/I&O Vital Signs Date Time Temp Pulse Resp B/P (MAP) Pulse Ox O2 Delivery O2 Flow Rate FiO2 07/23/21 06:05 97.9 68 18 102/67 (79) Room Air 07/22/21 06:23 98 KURT BRANHAM MD Jul 23, 2021 11:45
[2021-07-24 06:00] VITALS: BP 111/66
[2021-07-24] MEDS: PRENATAL VITAMINS CHEWABLE TABLET PO SCH (08:06)
== END 2021-07-24 14:25 | disposition home or self-care (01) | DRG 541 ==
LOC: M LDO 20:03 → M LDI 21:47 → M OBS 07-21 18:40
PROVIDERS: ADMIT Advanced Practice Midwife; ATTEND Advanced Practice Midwife
PROC: 10E0XZZ Delivery of Products of Conception, External Approach (ICD-10-PCS; principal; 2021-07-21)
PROC: 0KQM0ZZ Repair Perineum Muscle, Open Approach (ICD-10-PCS; 2021-07-21)
PROC: 10D17Z9 Manual Extraction of Products of Conception, Retained, Via Natural or Artificial Opening (ICD-10-PCS; 2021-07-21)
DX: O45.8X3 Other premature separation of placenta, third trimester (principal); U07.1 COVID-19; O98.52 Other viral diseases complicating childbirth; Z37.0 Single live birth; Z3A.39 39 weeks gestation of pregnancy; O69.81X0 Labor and delivery complicated by cord around neck, without compression, not applicable or unspecified; O70.1 Second degree perineal laceration during delivery; O73.1 Retained portions of placenta and membranes, without hemorrhage

== ENCOUNTER → 2021-09-17 | Outpatient (REF) | payer OTHER ==
[~2021-09-17] MED LIST changes: +PRENTAB9 PO
== END ==
LOC: M SFHCWAGY 16:45
PROVIDERS: ATTEND Obstetrics & Gynecology
DX: R30.0 Dysuria (principal)

== ENCOUNTER → 2021-09-30 | Outpatient (REF) | payer OTHER ==
[2021-09-30 23:53] LABS: RSV AMPLIFICATION NEGATIVE (NEGATIVE)
== END ==
LOC: M LAB REF 22:02
PROVIDERS: ATTEND Physician Assistant
DX: Z11.52 Encounter for screening for COVID-19 (principal); R51.9 Headache, unspecified

== ENCOUNTER → 2021-12-11 | Outpatient (REF) | payer OTHER | LOC: M SFHCWAGY 12:56 | PROVIDERS: ATTEND Advanced Practice Midwife | DX: R87.612 Low grade squamous intraepithelial lesion on cytologic smear of cervix (LGSIL) (principal); Z12.4 Encounter for screening for malignant neoplasm of cervix ==

== ENCOUNTER → 2022-01-25 | Outpatient (REF) | payer OTHER | LOC: M SFHCWAGY 17:03 | PROVIDERS: ATTEND Specialist | DX: R87.612 Low grade squamous intraepithelial lesion on cytologic smear of cervix (LGSIL) (principal) ==

== ENCOUNTER → 2022-12-22 | Outpatient (REF) | payer OTHER | LOC: M PLALAB 08:08 | PROVIDERS: ATTEND Advanced Practice Midwife | DX: Z12.4 Encounter for screening for malignant neoplasm of cervix (principal) ==

== ENCOUNTER → 2023-12-28 | Outpatient (REF) | payer OTHER ==
[2023-12-28 14:47] LABS: Trichomonas vaginalis (AMP) NOT DETECTED (NEGATIVE)
[2023-12-28 15:11] LABS: GC DNA AMPLIFICATION NEGATIVE (NEGATIVE)
== END ==
LOC: M PLALAB 10:23
PROVIDERS: ATTEND Advanced Practice Midwife
DX: Z01.419 Encounter for gynecological examination (general) (routine) without abnormal findings (principal); Z11.51 Encounter for screening for human papillomavirus (HPV); Z87.42 Personal history of other diseases of the female genital tract; Z11.3 Encounter for screening for infections with a predominantly sexual mode of transmission

== ENCOUNTER 2024-01-08 14:17 | Emergency (ER) | payer OTHER ==
[~2024-01-08] VITALS: Ht 167.6 cm; Wt 59.6 kg
[2024-01-08 15:13] LABS: BASO % 0.3 % (0.0-1.0); EOS # 0.1 10^3/uL (0.0-0.5); HEMATOCRIT 38.8 % (36.0-47.0); HEMOGLOBIN 13.3 g/dl (12.0-15.5); LYMPH # 2.6 10^3/uL (1.5-5.0); LYMPH % 21.8 % (24.0-44.0); MEAN CORPUSCULAR HEMOGLOBIN 30.9 pg (27.0-33.0); MEAN CORPUSCULAR HGB CONC 34.3 g/dl (32.0-36.5); MONO # 0.7 10^3/uL (0.0-0.8); MONO % 5.6 % (2.0-8.0); NEUTROPHILS # 8.4 10^3/uL (1.5-8.5); PLATELET COUNT, AUTOMATED 204 10^3/uL (150-450); RED BLOOD COUNT 4.31 10^6/uL (4.00-5.40); WHITE BLOOD COUNT 11.9 10^3/uL (4.0-10.0)
[2024-01-08 15:25] LABS: BLOOD UREA NITROGEN 12 MG/DL (9-23); CALCIUM LEVEL 9.4 MG/DL (8.5-10.1); CARBON DIOXIDE LEVEL 26 MMOL/L (20-31); CHLORIDE LEVEL 103 MMOL/L (98-107); CREATININE FOR GFR 0.68 MG/DL (0.55-1.30); GLOMERULAR FILTRATION RATE > 60.0 (>60); GLUCOSE, FASTING 86 MG/DL (60-100); SODIUM LEVEL 134 MMOL/L (136-145)
[2024-01-08 16:12] LABS: HCG, SERUM QUANTITATIVE 106838.8 MIU/ML (<4.2)
[2024-01-08 18:10] LABS: AMORPHOUS SEDIMENT SMALL (NEGATIVE); APPEARANCE, URINE CLOUDY (CLEAR); BACTERIA, URINE AUTO 1+ (NEGATIVE); BILIRUBIN, URINE AUTO NEGATIVE (NEGATIVE); BLOOD, URINE BLOOD 1+ (NEGATIVE); COLOR, URINE YELLOW (YELLOW); GLUCOSE, URINE (UA) AUTO NEGATIVE (NEGATIVE); KETONE, URINE AUTO TRACE mg/dL (NEGATIVE); LEUKOCYTE ESTERASE, URINE AUTO 3+ (NEGATIVE); MUCUS, URINE SMALL (NEGATIVE); NITRITE, URINE AUTO NEGATIVE (NEGATIVE); PROTEIN, URINE AUTO NEGATIVE (NEGATIVE); RBC, URINE AUTO 3 /HPF (0-3); SPECIFIC GRAVITY URINE AUTO 1.008 (1.002-1.035); SQUAMOUS EPITHELIAL CELL UR AU 5 /HPF (0-6); UROBILINOGEN, URINE AUTO 0.2 mg/dL (0.0-2.0); WBC, URINE AUTO 76 /HPF (0-3)
[2024-01-08] MEDS ORDERED: MACR100C43 PO (18:32)
[2024-01-08 18:43] VITALS: BP 110/59; TEMP 97.9; O2SAT 100
[2024-01-08] MEDS: NITROFURANTOIN (MACROBID) 100 MG CAP PO ONE (18:47)
== END 2024-01-08 19:20 | disposition home or self-care (01) ==
LOC: M ED 14:17
DX: O23.41 Unspecified infection of urinary tract in pregnancy, first trimester (principal); O23.591 Infection of other part of genital tract in pregnancy, first trimester; Z3A.01 Less than 8 weeks gestation of pregnancy; Z79.810 Long term (current) use of selective estrogen receptor modulators (SERMs); Z79.2 Long term (current) use of antibiotics

== ENCOUNTER → 2024-01-18 | Outpatient (CLI) | payer OTHER ==
[~2024-01-18] MED LIST changes: +MACR100C43 PO
[2024-01-18 15:46] LABS: HEMATOCRIT 39.6 % (36.0-47.0); HEMOGLOBIN 13.4 g/dl (12.0-15.5); MEAN CORPUSCULAR HEMOGLOBIN 31.2 pg (27.0-33.0); MEAN CORPUSCULAR HGB CONC 33.8 g/dl (32.0-36.5); MEAN CORPUSCULAR VOLUME 92.3 fl (80.0-96.0); PLATELET COUNT, AUTOMATED 211 10^3/uL (150-450); RED BLOOD COUNT 4.29 10^6/uL (4.00-5.40); WHITE BLOOD COUNT 10.3 10^3/uL (4.0-10.0)
[2024-01-18 16:22] LABS: HIV 1&2 SCREEN NEGATIVE (NEGATIVE)
[2024-01-18 16:29] LABS: HEPATITIS C VIRUS ABY INDEX < 0.02 INDEX (<0.8)
[2024-01-18 16:44] LABS: GC DNA AMPLIFICATION NEGATIVE (NEGATIVE)
== END ==
LOC: M PLALAB 11:50
PROVIDERS: ATTEND Advanced Practice Midwife
DX: Z34.81 Encounter for supervision of other normal pregnancy, first trimester (principal)

== ENCOUNTER → 2024-02-17 | Outpatient (CLI) | payer OTHER | LOC: M PLALAB 11:22 | PROVIDERS: ATTEND Advanced Practice Midwife | DX: Z36.89 Encounter for other specified antenatal screening (principal); Z3A.12 12 weeks gestation of pregnancy ==

== ENCOUNTER → 2024-02-28 | Outpatient (CLI) | payer OTHER | LOC: M PLALAB 10:47 | PROVIDERS: ATTEND Advanced Practice Midwife | DX: Z34.80 Encounter for supervision of other normal pregnancy, unspecified trimester (principal); Z3A.00 Weeks of gestation of pregnancy not specified ==

== ENCOUNTER → 2024-04-04 | Outpatient (CLI) | payer MEDICAID, OTHER | LOC: M WHC 09:58 | PROVIDERS: ATTEND Advanced Practice Midwife | DX: Z34.81 Encounter for supervision of other normal pregnancy, first trimester (principal); Z36.2 Encounter for other antenatal screening follow-up; Z3A.00 Weeks of gestation of pregnancy not specified ==

== ENCOUNTER → 2024-06-07 | Outpatient (CLI) | payer OTHER ==
[2024-06-07 14:14] LABS: HEMATOCRIT 36.1 % (36.0-47.0); MEAN CORPUSCULAR HEMOGLOBIN 30.9 pg (27.0-33.0); MEAN CORPUSCULAR HGB CONC 33.2 g/dl (32.0-36.5); PLATELET COUNT, AUTOMATED 160 10^3/uL (150-450); RED BLOOD COUNT 3.88 10^6/uL (4.00-5.40); WHITE BLOOD COUNT 11.9 10^3/uL (4.0-10.0)
[2024-06-07 14:15] LABS: GLUCOSE CHALLENGE TEST 1 HOUR 60 MG/DL (LESS THAN 140)
[2024-06-07 14:50] LABS: HIV 1&2 SCREEN NEGATIVE (NEGATIVE)
== END ==
LOC: M PLALAB 08:49
PROVIDERS: ATTEND Advanced Practice Midwife
DX: Z34.82 Encounter for supervision of other normal pregnancy, second trimester (principal)

== ENCOUNTER → 2024-08-02 | Outpatient (REF) | payer OTHER | LOC: M SFHCWAGY 12:14 | PROVIDERS: ATTEND Advanced Practice Midwife | DX: Z34.83 Encounter for supervision of other normal pregnancy, third trimester (principal); Z36.85 Encounter for antenatal screening for Streptococcus B ==

== ENCOUNTER → 2024-08-10 | Outpatient (CLI) | payer OTHER | LOC: M RAD 13:46 | PROVIDERS: ATTEND Advanced Practice Midwife | DX: O26.843 Uterine size-date discrepancy, third trimester (principal); Z3A.37 37 weeks gestation of pregnancy ==

== ENCOUNTER 2024-08-13 11:48 | Inpatient (IN) | payer OTHER ==
[2024-08-13] VITALS (32 sets, daily range): BP systolic 98–177; BP diastolic 55–118
[~2024-08-13] VITALS: Ht 167.6 cm; Wt 80.8 kg
[2024-08-13] MEDS: LACTATED RINGER'S 1000 ML IV STA (11:53)
[2024-08-13] MEDS ORDERED: OXYTOCIN DRIP 30 UNITS in IV 1 EA IV PRN (11:55)
[2024-08-13] MEDS ORDERED: CARBOPROST TROMETHAMINE 250 MCG/ML AMP IM PRN (11:55)
[2024-08-13] MEDS ORDERED: TRANEXAMIC ACID INJection 1,000 MG in NS 100 ML IV PRN (11:55)
[2024-08-13] MEDS ORDERED: LIDOCAINE 1% MDV 20ML VIAL INFIL PRN (11:55)
[2024-08-13] MEDS ORDERED: METHYLERGONOVINE MALEATE 0.2MG/ML 1ML VIAL IM PRN (11:55)
[2024-08-13] MEDS ORDERED: OXYTOCIN INJ 10UNITS/ML 1ML VIAL IM PRN (11:55)
[2024-08-13 12:52] LABS: HEMATOCRIT 31.9 % (36.0-47.0); HEMOGLOBIN 10.8 g/dl (12.0-15.5); MEAN CORPUSCULAR HGB CONC 33.9 g/dl (32.0-36.5); MEAN CORPUSCULAR VOLUME 88.6 fl (80.0-96.0); PLATELET COUNT, AUTOMATED 155 10^3/uL (150-450); WHITE BLOOD COUNT 11.2 10^3/uL (4.0-10.0)
[2024-08-13] MEDS: LR 1,000 ML IV SCH (12:59)
[2024-08-13] MEDS: OXYTOCIN DRIP 30 UNITS in IV 1 EA IV SCH (12:59)
[2024-08-13 13:55] LABS: HEPATITIS C VIRUS ABY INDEX 0.02 INDEX (<0.8)
[2024-08-13] MEDS ORDERED: METOCLOPRAMIDE INJ 10MG/2ML VIAL IV PRN (19:50)
[2024-08-13] MEDS ORDERED: EPIDURAL/PCA KEYS XX PRN (19:50)
[2024-08-13] MEDS ORDERED: ONDANSETRON 4MG 2ML VIAL IV PRN (19:50)
[2024-08-13] MEDS ORDERED: ePHEDrine SULFATE 25 MG/5 ML(5MG/ML) SYRINGE IVP PRN (19:50)
[2024-08-13] MEDS ORDERED: NALOXONE INJ 0.4MG/1ML VIAL IV PRN ×3 (19:50)
[2024-08-13] MEDS ORDERED: **NOTE PATIENT COMMENT** MISC XX SCH (19:50)
[2024-08-13] MEDS ORDERED: diphenhydrAMINE 50MG/ML VIAL IV PRN ×2 (19:50)
[2024-08-13] MEDS ORDERED: SLF 3 ML SYR IV SCH (19:50)
[2024-08-13] MEDS: LR 500 ML IV PRN (21:13)
[2024-08-13] MEDS: FENTANYL/ROPIVACAINE/NACL BAG 100 ML EPIDURAL SCH (21:15)
[2024-08-13] MEDS ORDERED: ANUSOL HC CREAM 30GM TOP PRN (22:15)
[2024-08-13] MEDS ORDERED: DOCUSATE SODIUM 100MG CAPSULE PO PRN (22:15)
[2024-08-13] MEDS ORDERED: MOM 30ML SUSPENSION UDC PO PRN (22:15)
[2024-08-13] MEDS ORDERED: ACETAMINOPHEN 500 MG TAB PO PRN (22:15)
[2024-08-13] MEDS ORDERED: ACETAMINOPHEN 325 MG TAB PO PRN (22:15)
[2024-08-13] MEDS: IBUPROFEN 800 MG TAB PO PRN (23:15)
[2024-08-14 00:01] VITALS: BP 106/65; O2SAT 98
[2024-08-14] MEDS: DIBUCAINE 1% OINTMENT 30GM TOP PRN (00:10)
[2024-08-14 06:00] VITALS: BP 110/60; O2SAT 99
[2024-08-14] MEDS: PRENATAL VITAMINS CHEWABLE TABLET PO SCH (12:37)
[2024-08-14 18:00] VITALS: BP 109/66; O2SAT 97
[2024-08-15] MEDS: IBUPROFEN 600MG TAB PO PRN (05:45)
[2024-08-15 06:00] VITALS: BP 108/63; O2SAT 100
[2024-08-15] MEDS: MEASLES,MUMPS,RUBELLA VACCINE INJ (MMR-II) SC.IMMUN ONE (07:00)
[2024-08-15] MEDS ORDERED: ACET32TAB PO (09:06)
[2024-08-15] MEDS ORDERED: IBUP-1022 PO (09:06)
== END 2024-08-15 11:06 | disposition home or self-care (01) | DRG 560 ==
LOC: M LDI 11:48 → M OBS 23:55
PROVIDERS: ADMIT Advanced Practice Midwife; ATTEND Advanced Practice Midwife
PROC: 10E0XZZ Delivery of Products of Conception, External Approach (ICD-10-PCS; principal; 2024-08-13)
PROC: 3E033VJ Introduction of Other Hormone into Peripheral Vein, Percutaneous Approach (ICD-10-PCS; 2024-08-13)
PROC: 10907ZC Drainage of Amniotic Fluid, Therapeutic from Products of Conception, Via Natural or Artificial Opening (ICD-10-PCS; 2024-08-13)
PROC: 0KQM0ZZ Repair Perineum Muscle, Open Approach (ICD-10-PCS; 2024-08-13)
DX: O36.5930 Maternal care for other known or suspected poor fetal growth, third trimester, not applicable or unspecified (principal); O69.82X0 Labor and delivery complicated by other cord entanglement, without compression, not applicable or unspecified; Z37.0 Single live birth; Z3A.38 38 weeks gestation of pregnancy; O70.1 Second degree perineal laceration during delivery

== ENCOUNTER → 2024-09-07 | Outpatient (CLI) | payer OTHER ==
[~2024-09-07] MED LIST changes: +ACET32TAB PO; +IBUP-1022 PO
[2024-09-07 13:53] LABS: BASO % 0.4 % (0.0-1.0); EOS # 0.1 10^3/uL (0.0-0.5); EOS % 1.3 % (0.0-3.0); HEMATOCRIT 42.9 % (36.0-47.0); HEMOGLOBIN 13.8 g/dl (12.0-15.5); LYMPH # 2.1 10^3/uL (1.5-5.0); LYMPH % 31.5 % (24.0-44.0); MEAN CORPUSCULAR HEMOGLOBIN 28.8 pg (27.0-33.0); MEAN CORPUSCULAR HGB CONC 32.2 g/dl (32.0-36.5); MEAN CORPUSCULAR VOLUME 89.4 fl (80.0-96.0); MONO # 0.5 10^3/uL (0.0-0.8); MONO % 7.4 % (2.0-8.0); NEUTROPHILS % 59.1 % (36.0-66.0); PLATELET COUNT, AUTOMATED 243 10^3/uL (150-450); WHITE BLOOD COUNT 6.7 10^3/uL (4.0-10.0)
[2024-09-07 14:02] LABS: ALBUMIN 3.7 G/DL (3.2-5.2); ALKALINE PHOSPHATASE 89 U/L (35-104); ALT/SGPT 23 U/L (7.0-40); AST/SGOT 14 U/L (<34); BILIRUBIN,TOTAL 0.4 MG/DL (0.3-1.2); BLOOD UREA NITROGEN 19 MG/DL (9-23); CALCIUM LEVEL 10.4 MG/DL (8.5-10.1); CARBON DIOXIDE LEVEL 27 MMOL/L (20-31); CHLORIDE LEVEL 106 MMOL/L (98-107); CHOLESTEROL LEVEL 272 MG/DL (<200); CREATININE FOR GFR 0.85 MG/DL (0.55-1.30); FREE T4 1.13 NG/DL (0.89-1.76); GLOMERULAR FILTRATION RATE > 60.0 (>60); GLUCOSE, FASTING 79 MG/DL (60-100); HDL CHOLESTEROL 54.3 MG/DL (>40); LDL CHOLESTEROL 166.5 MG/DL (<100); NON-HDL-C 217.7 MG/DL; POTASSIUM SERUM 4.7 MMOL/L (3.5-5.1); SODIUM LEVEL 140 MMOL/L (136-145); THYROID STIMULATING HORMONE 0.767 uIU/ML (0.55-4.78); TOTAL PROTEIN 7.6 G/DL (5.7-8.2); TRIGLYCERIDES LEVEL 256 MG/DL (<150)
== END ==
LOC: M PLALAB 09:29
PROVIDERS: ATTEND Nurse Practitioner Family
DX: R53.83 Other fatigue (principal); Z13.220 Encounter for screening for lipoid disorders

== ENCOUNTER → 2025-09-10 | Outpatient (CLI) | payer OTHER ==
[~2025-09-10] MED LIST changes: -IBUP-1022 PO; +IBUP600T42 PO
[2025-09-10 13:46] LABS: BASO # 0.0 10^3/uL (0.0-0.2); BASO % 0.5 % (0.0-1.0); EOS # 0.0 10^3/uL (0.0-0.5); EOS % 0.7 % (0.0-3.0); LYMPH # 2.4 10^3/uL (1.5-5.0); LYMPH % 41.4 % (24.0-44.0); MONO # 0.5 10^3/uL (0.0-0.8); MONO % 8.1 % (2.0-8.0); NEUTROPHILS # 2.8 10^3/uL (1.5-8.5); NEUTROPHILS % 49.1 % (36.0-66.0); PLATELET COUNT, AUTOMATED 211 10^3/uL (150-450)
[2025-09-10 13:48] LABS: FREE T4 1.30 NG/DL (0.89-1.76)
[2025-09-10 13:49] LABS: ALT/SGPT 12 U/L (7.0-40); AST/SGOT 11 U/L (<34); CALCIUM LEVEL 9.2 MG/DL (8.5-10.1); CARBON DIOXIDE LEVEL 27 MMOL/L (20-31); CHLORIDE LEVEL 108 MMOL/L (98-107); CHOLESTEROL LEVEL 215 MG/DL (<200); CHOLESTEROL RISK RATIO 2.86 (<5); CREATININE FOR GFR 0.80 MG/DL (0.55-1.30); GLOMERULAR FILTRATION RATE > 90.0 (>60); LDL CHOLESTEROL 130.3 MG/DL (<100); NON-HDL-C 139.9 MG/DL; POTASSIUM SERUM 4.8 MMOL/L (3.5-5.1); SODIUM LEVEL 140 MMOL/L (136-145); TRIGLYCERIDES LEVEL 48 MG/DL (<150)
[2025-09-10 13:53] LABS: TOTAL 25(OH) VITAMIN D 27.0 NG/ML (20.0-100.0)
== END ==
LOC: M PLALAB 09:51
PROVIDERS: ATTEND Nurse Practitioner Family
DX: Z00.00 Encounter for general adult medical examination without abnormal findings (principal); E78.2 Mixed hyperlipidemia; E55.9 Vitamin D deficiency, unspecified; R53.83 Other fatigue